=== PATIENT | male | born 1950 | race Caucasian/White ===

== ENCOUNTER 2016-05-23 11:30 | Day surgery (SDC) | payer MEDICARE, MEDICAID, OTHER ==
[~2016-05-23 11:30] MED LIST: Lactated Ringers 1,000 ML IV SCH; Lidocaine 1%/Sod Bicarbonate in NS 8.4% 1 ML Syringe IV PRN; Sodium Chloride 0.9% 10 ML Syringe FLUSH PRN
--- NOTE | 2016-05-23 12:09 | PCM.PREANE ---
Preanesthetic Assessment - Anesthesia/Transfusion/Family Hx Anesthesia History: Prior Anesthesia Without Reaction Family History of Anesthesia Reaction: No Transfusion History: No Prior Transfusion(s) - Review of Systems General: No Symptoms Pulmonary: No Symptoms Cardiovascular: No Symptoms Gastrointestinal: No symptoms Neurological: Numbness (minor in left hand) Other: Reports: None - Physical Assessment NPO Status Date: 05/22/16 NPO Status Time: 00:00 Pulse: 81 O2 Sat by Pulse Oximetry: 94 Respiratory Rate: 16 Blood Pressure: 109/71 Temperature: 36.4 C Height: 1.68 m Weight: 78.018 kg ASA Class: 3 Mental Status: Alert & Oriented x3 Dentition: Reports: Normal Dentition, Fyffe(s) Thyro-Mental Finger Breadths: 3 Mouth Opening Finger Breadths: 3 ROM/Head Extension: Limited/Partial (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 "not sure which level") Lungs: Clear to auscultation, Normal respiratory effort Cardiovascular: Regular Rate, Regular Rhythm, No Murmurs - Allergies Allergies/Adverse Reactions: Allergies Allergy/AdvReac Type Severity Reaction Status Date / Time No Known Allergies Allergy Verified 05/22/16 14:06 - Blood Blood Available: No Product(s) Available: None - Anesthesia Plan Pre-Op Medication Ordered: None - Acknowledgements Anesthesia Type Planned: MAC Pt an Appropriate Candidate for the Planned Anesthesia: Yes Alternatives and Risks of Anesthesia Discussed w Pt/Guardian: Yes Pt/Guardian Understands and Agrees with Anesthesia Plan: Yes PreAnesthesia Questionnaire HEENT History: Reports: Impaired vision, Other (see below) Other HEENT History: wears eyeglasses, tinnitis Cardiovascular History: Reports: Afib, Arrhythmia, High cholesterol, Other (see below) 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 Respiratory History: Reports: None Gastrointestinal History: Reports: Hemorrhoids Genitourinary History: Reports: None 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 Neurological History: Reports: None Psychiatric History: Reports: PTSD Endocrine/Metabolic History: Reports: None Hematologic History: Reports: Other (see below) Other Hematologic History: chronic anticoagulation Immunologic History: Reports: None Oncologic (Cancer) History: Reports: None Dermatologic History: Reports: None - Infectious Disease History Infectious Disease History: Reports: Chicken pox, Measles, Mumps, Shingles - Past Surgical History Head Surgeries/Procedures: Reports: None Cardiovascular Surgical History: Reports: Cardiac Ablation GI Surgical History: Reports: Colonoscopy Musculoskeletal Surgical History: Reports: Other (see below) Other Musculoskeletal Surgeries/Procedures:: back surgery--3 vertebrae fused C4- C6, great toe joint replacement - SUBSTANCE USE Smoking Status *Q: Never Smoker Tobacco Use Within Last Twelve Months: Snuff/Dip Second Hand Smoke Exposure: No Days Per Week of Alcohol Use: 0 Number of Drinks Per Day: 1 Total Drinks Per Week: 0 Recreational Drug Use History: No - HOME MEDS Home Medications: Home Meds Multivitamin with Minerals [Multivitamins with Minerals] 1 tab PO DAILY [History] Simvastatin [Zocor] 20 mg PO DAILY 01/12/15 [History] Diltiazem HCl [Cardizem LA] 120 mg PO DAILY #30 tab.sr.24h 05/03/15 [Rx] Apixaban [Eliquis] 5 mg PO BID 10/09/15 [History] Cholecalciferol (Vitamin D3) [Vitamin D3] 2,000 unit PO DAILY 05/22/16 [History] Melatonin 3 mg PO DAILY 05/22/16 [History] Multivitamin [Multivitamins] 1 tab PO DAILY 05/22/16 [History] Psyllium Husk [Metamucil] 1 cap PO DAILY 05/22/16 [History] - CURRENT (IN HOUSE) MEDS Current Meds: Current Medications Lactated Ringer's (Ringers, Lactated) 1,000 mls @ 125 mls/hr IV ASDIRECTED BRENDA Stop: 05/23/16 23:00 Lidocaine/Sodium Bicarbonate (Buffered Lidocaine 1% In Ns 8.4%) 0.25 ml IV ONETIME PRN PRN Reason: Prior to IV Start Stop: 05/23/16 18:00 Sodium Chloride (Saline Flush) 10 ml FLUSH ASDIRECTED PRN PRN Reason: Keep Vein Open Stop: 05/23/16 18:00 Discontinued Medications Lactated Ringer's (Ringers, Lactated) 1,000 mls @ 125 mls/hr IV ASDIRECTED [facility] Lidocaine/Sodium Bicarbonate (Buffered Lidocaine 1% In Ns 8.4%) 0.25 ml IV ONETIME PRN PRN Reason: Prior to IV Start Sodium Chloride (Saline Flush) 10 ml FLUSH ASDIRECTED PRN PRN Reason: Keep Vein Open
--- NOTE | 2016-05-23 13:03 | PCM.HP ---
H&P History of Present Illness - General Date of Service: 05/23/16 Admit Problem/Dx: Screening colonoscopy Source of Information: Patient - History of Present Illness Initial Comments - Free Text/Narative: The patient is a 65-year-old male self referred. PCP is Dr. Connor, also follows with providers at [facility]. The patient was last evaluated in the clinic on 04/20/16. He denies any medical changes since his last visit. He has been holding his Eliquis for the recommended two days prior to procedure. He does also report that he had an anal fissure after his last endoscopy. The patient denies any constipation/ diarrhea/ hematochezia/ melena/blood on tissue paper. Hx of external hemorrhoids, under control last a few years ago. Has 1-2 soft, brown, formed, BMs daily. Bowel movements are described as regular and easy to pass. Takes metamucil controls bowels. . No unintentional weight loss. No change in stool caliber. Denies history of ulcerative colitis or Crohn's disease. Denies any family history of inflammatory bowel disease or GI cancers. Last colonoscopy was 10-12 years ago at [facility], uncertain who did this for him. Was told it was normal. [facility] that indicated las colonoscopy was 11/2005, and "negative." No history of reflux, heartburn, nausea, vomiting, or dysphagia. - Related Data Allergies/Adverse Reactions: Allergies Allergy/AdvReac Type Severity Reaction Status Date / Time No Known Allergies Allergy Verified 05/22/16 14:06 Home Medications: Home Meds Multivitamin with Minerals [Multivitamins with Minerals] 1 tab PO DAILY [History] Simvastatin [Zocor] 20 mg PO DAILY 01/12/15 [History] Diltiazem HCl [Cardizem LA] 120 mg PO DAILY #30 tab.sr.24h 05/03/15 [Rx] Apixaban [Eliquis] 5 mg PO BID 10/09/15 [History] Cholecalciferol (Vitamin D3) [Vitamin D3] 2,000 unit PO DAILY 05/22/16 [History] Melatonin 3 mg PO DAILY 05/22/16 [History] Psyllium Husk [Metamucil] 1 cap PO DAILY 05/22/16 [History] Past Medical History HEENT History: Reports: Impaired vision, Other (see below) Other HEENT History: wears eyeglasses, tinnitis Cardiovascular History: Reports: Afib, Arrhythmia, High cholesterol, Other (see below) 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 Respiratory History: Reports: None Gastrointestinal History: Reports: Hemorrhoids Genitourinary History: Reports: None 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 Neurological History: Reports: None Psychiatric History: Reports: PTSD Endocrine/Metabolic History: Reports: None Hematologic History: Reports: Other (see below) Other Hematologic History: chronic anticoagulation Immunologic History: Reports: None Oncologic (Cancer) History: Reports: None Dermatologic History: Reports: None - Infectious Disease History Infectious Disease History: Reports: Chicken pox, Measles, Mumps, Shingles - Past Surgical History Head Surgeries/Procedures: Reports: None Cardiovascular Surgical History: Reports: Cardiac Ablation GI Surgical History: Reports: Colonoscopy Musculoskeletal Surgical History: Reports: Other (see below) Other Musculoskeletal Surgeries/Procedures:: back surgery--3 vertebrae fused C4- C6, great toe joint replacement Social & Family History - Tobacco Use Smoking Status *Q: Never Smoker Second Hand Smoke Exposure: No - Alcohol Use Days Per Week of Alcohol Use: 0 Number of Drinks Per Day: 1 Total Drinks Per Week: 0 - Recreational Drug Use Recreational Drug Use: No H&P Review of Systems - Review of Systems: Review Of Systems: See Below Free Text/Narrative: Denies any exertional chest pain or shortness of breath. Does walk on the treadmill twice weekly without symptoms. No history of any easy bleeding or bruising. No personal or familial history of clotting or bleeding disorders. No history of anesthetic complications. No history of familial anesthetic complications. Denies presence/history of chest pain. NO longer has palpitations, resolved with last ablation. Dr. Carbajal at [facility] did recently discontinue his Flecanide after ablation. NO: lower extremity edema, dyspnea at rest, orthopnea , claudication, wheezing, obstructive sleep apnea, chronic cough, upper respiratory symptoms in the last two weeks. History of blood thinner use, for history of atrial fibrillation. Is on Eliquis, previously was on Coumadin. NO hx stoke, stents in heart or heart valves. No history of anemia. No history of seizure or stroke. No history of fever, chills, or nightsweats. Has prior cardiology evaluation for atrial fibrillation. Hx of AVRT, PAF, hypertension, hyperlipidemia. Last cardiology visit was with Teresa Burden NP on 04/10. Eliquis was continued. EKG in clinic at that vist was normal, in SR. Per Ms. Burden's note patient did have a negative stress test at [facility] prior to ablation in 2015. Sleep study was recommended by Dr. Kothari in December, patient declined. Dr. Carbajal, [facility] and [facility], is his or director. Patient has had ablations x 2. He has had no recurrence of atrial fibrillation since his pulmonary vein isolation on 01/09/16.Patient saw Dr. Carbajal last on . Eliquis was continued due to risk factors ([id number] score 2). Diltiazem was continued for HTN. Flecanide was discontinued. Echo 2015: Conclusion: 1. Left ventricular ejection fraction is 65 to 70%. 2. Impaired left ventricular relaxation with indeterminate LV filling pressures. (Grade I Diastolic Dysfunction). 3. Mildly dilated left atrium. NO: pulmonology evaluation. All other systems reviewed and were negative except as per history of present illness. General: Reports: no symptoms HEENT: Reports: no symptoms Pulmonary: Reports: No Symptoms Cardiovascular: Reports: no symptoms Gastrointestinal: Reports: No symptoms Genitourinary: Reports: no symptoms Musculoskeletal: Reports: no symptoms Skin: Reports: no symptoms Psychiatric: Reports: no symptoms Neurological: Reports: No Symptoms Hematologic/Lymphatic: Reports: no symptoms Immunologic: Reports: no symptoms Exam - Exam Exam: See Below - Vital Signs Vital Signs: Last Vital Signs Temp 97.6 F 05/23/16 12:17 Pulse 81 05/23/16 12:17 Resp 16 05/23/16 12:17 BP 109/71 05/23/16 12:17 Pulse Ox 94 L 05/23/16 12:17 Weight: 78.018 kg - Exam General: alert, oriented HEENT: Conjunctiva clear. No: Scleral icterus Lungs: Clear to auscultation, Normal respiratory effort Cardiovascular: regular rate, regular rhythm, normal S1, normal S2 Abdomen: soft Back Exam: normal inspection Extremities: normal inspection. No: edema Skin: warm, dry, intact Neuro Extensive - Mental Status: alert, oriented x3, normal mood/affect, normal cognition, memory intact Psychiatric: alert, normal affect, normal mood *Q Meaningful Use (ADM) - VTE *Q VTE Criteria *Q: - Stroke *Q Stroke Criteria *Q: - AMI *Q AMI Criteria *Q: Problem List Initiated/Reviewed/Updated: Yes Orders Last 24hrs: Active Orders 24 hr Category Date Time Status Peripheral IV Care [RC] . DIRECTED Care 05/23/16 00:01 Active Verify Patient Consent Obtain [RC] ASDIRECTED Care 05/23/16 00:01 Active Lactated Ringers [Ringers, Lactated] 1,000 ml Med 05/23/16 00:01 Active IV ASDIRECTED Lidocaine 1%/Sod Bicarbonate [Buffered Lidocaine 1% in Med 05/23/16 00:01 Active NS 8.4%] 0.25 ml IV ONETIME PRN Sodium Chloride 0.9% [Saline Flush] Med 05/23/16 00:01 Active 10 ml FLUSH ASDIRECTED PRN Medication Administration Instruction [OM.PC] Routine Oth 05/23/16 00:01 Ordered Peripheral IV Insertion Adult [OM.PC] Routine Oth 05/23/16 00:01 Ordered Medication Orders Lactated Ringer's (Ringers, Lactated) 1,000 mls @ 125 mls/hr IV ASDIRECTED BRENDA Stop: 05/23/16 23:00 Last Admin: 05/23/16 12:05 Dose: 125 mls/hr Lidocaine/Sodium Bicarbonate (Buffered Lidocaine 1% In Ns 8.4%) 0.25 ml IV ONETIME PRN PRN Reason: Prior to IV Start Stop: 05/23/16 18:00 Last Admin: 05/23/16 12:04 Dose: 0.25 ml Sodium Chloride (Saline Flush) 10 ml FLUSH ASDIRECTED PRN PRN Reason: Keep Vein Open Stop: 05/23/16 18:00 Assessment/Plan Comment:: 65yr male due for colonoscopy, need for screening colonoscopy. Patient can perform 4 METS of physical activity without chest pain or shortness of breath. Hx of AVRT, PAF, hypertension, hyperlipidemia. PLAN: We discussed performing a screening colonoscopy. We discussed the risks and benefits of the colonoscopy including, pain, bleeding, damage to surrounding structures, need for additional procedures and bowel perforation. This procedure will be done today at [facility] due to cardiac hx and use of Eliquis, orders were placed and sent. I personally reviewed the patient's previous medical records and laboratory studies. Patient verbalized understanding and agreed with care plan. This patient was evaluated with Dr. Candy Fontanez, plan formulated by JENNY Tavarez-Beth scribing for Dr. Candy Fontanez General Surgery Department [facility]
[2016-05-23] MEDS ORDERED: Propofol 200 MG/20 ML SDV ONE ×3 (13:59→15:10)
--- NOTE | 2016-05-23 15:12 | PCM48HPAN ---
Post Anesthesia Note - EVALUATION WITHIN 48HRS OF ANESTHETIC Vital Signs in Normal Range: Yes Patient Participated in Evaluation: Yes Respiratory Function Stable: Yes Airway Patent: Yes Cardiovascular Function Stable: Yes Hydration Status Stable: Yes Pain Control Satisfactory: Yes Nausea and Vomiting Control Satisfactory: Yes Mental Status Recovered: Yes
[2016-05-23 15:43] VITALS: BP 128/83
--- NOTE | 2016-05-23 15:52 | PCM.OPNOTE ---
- General Post-Op/Procedure Note Date of Surgery/Procedure: 05/23/16 Operative Procedure(s): Colonoscopy with hot snare polypectomy Pre Op Diagnosis: Average risk screening colonoscopy Post-Op Diagnosis: Colon polyps, diverticulosis Anesthesia Technique: MAC Primary Surgeon: Candy oFntanez Anesthesia Provider: Shraddha Bernardo Pathology: 1. Hepatic flexure polyps (2) 2. Descending colon polyp 3. Sigmoid colon polyp 4. Rectal polyps (2) Fluid Replacement, Intraop: 800 (mL crystalloid ) EBL in mLs: 0 Complications: None Condition: Good Free Text/Narrative:: INDICATION FOR PROCEDURE: The patient is a 65-year-old man who was referred to me by Dr. Jhon Connor, and [facility] for evaluation for average risk screening colonoscopy. Last colonoscopy 11/2005. Performing a screening colonoscopy and the associated risks of the procedure had been discussed with the patient. The patient found these risks acceptable and agreed to proceed. DESCRIPTION OF PROCEDURE: A digital rectal exam was performed which was unremarkable. The prostate was of normal size and non-nodular. An Olympus colonoscope was inserted into the rectum and guided under direct visualization to the appendiceal orifice and ileocecal valve. Counter pressure was utilized to reach the cecum. The scope was then slowly withdrawn through the colon. The quality of the prep was good. Two small polyps were noted at the hepatic flexure , they were removed with hot snare and retrieved. One small polyp was noted in the descending colon, removed with hot snare and retrieved. One small polyp was noted in the sigmoid colon, removed with hot snare and retrieved. Finally, two small rectal polyps were noted, removed with hot snare and retrieved. Scant diverticulosis was noted throughout the colon. There was no evidence of angiodysplasias. The scope was withdrawn into the rectum and retroflexed. There was no significant prominence of the patient's internal hemorrhoids. The scope was straightened, the colon was desufflated, and the scope was withdrawn. The patient was awakened from sedation and transferred to the recovery room in stable condition having tolerated the procedure well. POSTOPERATIVE PLAN: I discussed with the patient's my intraoperative findings and recommendations. He will be sent a letter with further recommendations and his pathology findings as well as when his next colonoscopy should be performed. He is to restart his Eliquis tomorrow night. I counseled the patient's on normal and abnormal post polypectomy bleeding. He is to come to the emergency department immediately for any significant bleeding.
== END 2016-05-23 15:55 | disposition home or self-care (01) ==
LOC: JD.SDS 11:30
PROVIDERS: ATTEND Surgery
DX: Z12.11 Encounter for screening for malignant neoplasm of colon (principal); D12.4 Benign neoplasm of descending colon; D12.3 Benign neoplasm of transverse colon; D12.8 Benign neoplasm of rectum; K63.5 Polyp of colon; K57.30 Diverticulosis of large intestine without perforation or abscess without bleeding; Z79.899 Other long term (current) drug therapy; E78.00 Pure hypercholesterolemia, unspecified; Z98.890 Other specified postprocedural states
CPT/HCPCS: 45385; 88305; J7120; 00810; J2704

== ENCOUNTER 2019-04-13 10:39 | Emergency (ER) | payer MEDICARE, OTHER ==
[2019-04-13 10:53] VITALS: BP 111/75; PULSE 88
--- NOTE | 2019-04-13 12:23 | EDM.PDOC ---
ED HPI GENERAL MEDICAL PROBLEM - General Chief Complaint: Gastrointestinal Problem Stated Complaint: BLACK STOOL Time Seen by Provider: 04/13/19 10:59 Source of Information: Reports: Patient, Family History Limitations: Reports: No Limitations - History of Present Illness INITIAL COMMENTS - FREE TEXT/NARRATIVE: The patient presents with dark stools for 6 days. He says he has no pain except when he coughs. He is not lightheaded. He has no headache, neck pain, chest pain, shortness of breath, nausea or vomiting. He has no diarrhea. He is on eliquis. He stopped that 2 days ago. He had a colonoscopy 2 years ago that was good. Onset: Gradual Duration: Day(s): (6) Improves with: Reports: None Worsens with: Reports: None Associated Symptoms: Reports: No Other Symptoms Lower Abdominal Pain Score (Numeric/FACES): 3 - Related Data Allergies Allergy/AdvReac Type Severity Reaction Status Date / Time No Known Allergies Allergy Verified 04/13/19 10:53 Home Meds: Home Meds Multivitamin with Minerals [Multivitamins with Minerals] 1 tab PO DAILY [History] Diltiazem HCl [Cardizem LA] 120 mg PO DAILY #30 tab.sr.24h 05/03/15 [Rx] Apixaban [Eliquis] 5 mg PO BID 10/09/15 [History] Cholecalciferol (Vitamin D3) [Vitamin D3] 2,000 unit PO DAILY 05/22/16 [History] Psyllium Husk [Metamucil] 1 cap PO DAILY 05/22/16 [History] Fexofenadine [Susan] 60 mg PO DAILY 04/13/19 [History] Lutein/Minerals/Vit A,C & E [Ocuvite] 1 tab PO DAILY 04/13/19 [History] Evans-3/DHA/Epa/Fish Oil [Evans 3 500 Softgel] 1 each PO DAILY 04/13/19 [History ] atorvaSTATin [Lipitor] 10 mg PO BEDTIME 04/13/19 [History] Past Medical History HEENT History: Reports: Impaired Vision, Other (See Below) Other HEENT History: wears eyeglasses, tinnitis Cardiovascular History: Reports: Afib, Arrhythmia, High Cholesterol, Other (See Below) 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 Respiratory History: Reports: None Gastrointestinal History: Reports: Hemorrhoids Genitourinary History: Reports: None 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 Neurological History: Reports: None Psychiatric History: Reports: PTSD Endocrine/Metabolic History: Reports: None Hematologic History: Reports: Other (See Below) Other Hematologic History: chronic anticoagulation Immunologic History: Reports: None Oncologic (Cancer) History: Reports: None Dermatologic History: Reports: None - Infectious Disease History Infectious Disease History: Reports: Chicken Pox, Measles, Mumps, Shingles - Past Surgical History Head Surgeries/Procedures: Reports: None GI Surgical History: Reports: Colonoscopy Musculoskeletal Surgical History: Reports: Other (See Below) Social & Family History - Tobacco Use Smoking Status *Q: Never Smoker - Recreational Drug Use Recreational Drug Use: No ED ROS GENERAL - Review of Systems Review Of Systems: See Below Constitutional: Reports: No Symptoms HEENT: Reports: No Symptoms Respiratory: Reports: No Symptoms Cardiovascular: Reports: No Symptoms Endocrine: Reports: No Symptoms GI/Abdominal: Reports: Abdominal Pain, Black Stool. Denies: Nausea, Vomiting : Reports: No Symptoms Musculoskeletal: Reports: No Symptoms Skin: Reports: No Symptoms ED EXAM, GI/ABD - Physical Exam Exam: See Below Exam Limited By: No Limitations General Appearance: Alert, No Apparent Distress Ears: Normal External Exam Nose: Normal Inspection Head: Atraumatic, Normocephalic Neck: Normal Inspection Respiratory/Chest: No Respiratory Distress, Lungs Clear, Normal Breath Sounds Cardiovascular: Regular Rate, Rhythm, No Edema, No Murmur GI/Abdominal Exam: Soft, Non-Tender, No Organomegaly, No Mass Back Exam: Normal Inspection Extremities: Normal Inspection Course - Vital Signs Last Recorded V/S: Last Vital Signs Temp 98.4 F 04/13/19 10:50 Pulse 88 04/13/19 10:50 Resp 16 04/13/19 10:50 BP 111/75 04/13/19 10:50 Pulse Ox 95 04/13/19 10:50 - Orders/Labs/Meds Labs: Laboratory Tests 04/13/19 04/13/19 04/13/19 Range/Units 11:12 11:12 11:12 WBC 6.22 (4.23-9.07) K/mm3 RBC 3.35 L (4.63-6.08) M/mm3 Hgb 10.5 L D (13.7-17.5) gm/dl Hct 31.9 L (40.1-51.0) % MCV 95.2 H D (79.0-92.2) fl MCH 31.3 (25.7-32.2) pg MCHC 32.9 (32.2-35.5) g/dl RDW Std Deviation 47.1 H (35.1-43.9) fL Plt Count 282 (163-337) K/mm3 MPV 8.0 L (9.4-12.3) fl Neut % (Auto) 68.5 H (34.0-67.9) % Lymph % (Auto) 23.5 (21.8-53.1) % Grainger % (Auto) 7.7 (5.3-12.2) % Eos % (Auto) 0 L (0.8-7.0) Baso % (Auto) 0.0 L (0.1-1.2) % Neut # (Auto) 4.26 (1.78-5.38) K/mm3 Lymph # (Auto) 1.46 (1.32-3.57) K/mm3 Grainger # (Auto) 0.48 (0.30-0.82) K/mm3 Eos # (Auto) 0.00 L (0.04-0.54) K/mm3 Baso # (Auto) 0.00 L (0.01-0.08) K/mm3 PT 11.4 (9.7-12.0) SECONDS INR 1.05 APTT 25 (22-31) SECONDS Sodium 141 (136-145) mEq/L Potassium 3.9 (3.5-5.1) mEq/L Chloride 105 (98-107) mEq/L Carbon Dioxide 27 (21-32) mEq/L Anion Gap 12.9 (5-15) BUN 14 (7-18) mg/dL Creatinine 0.9 (0.7-1.3) mg/dL Est Cr Clr Drug Dosing 67.38 mL/min Estimated GFR (MDRD) > 60 (>60) mL/min BUN/Creatinine Ratio 15.6 (14-18) Glucose 106 (80-115) mg/dL Calcium 8.9 (8.5-10.1) mg/dL Total Bilirubin 0.3 (0.2-1.0) mg/dL AST 28 (15-37) U/L ALT 32 (16-63) U/L Alkaline Phosphatase 54 (46-116) U/L Total Protein 6.4 (6.4-8.2) g/dl Albumin 3.8 (3.4-5.0) g/dl Globulin 2.6 gm/dL Albumin/Globulin Ratio 1.5 (1-2) - Re-Assessments/Exams Free Text/Narrative Re-Assessment/Exam: 04/13/19 12:21 I ordered labs. His Hgb was low at 10.5. He was normal years ago when he was here. His CMP looks good. His PT/INR/PTT all look good. I will have him hole his eliquis and take pepcid and follow up with his doctor this week. Departure - Departure Time of Disposition: 12:30 Disposition: Home, Self-Care 01 Condition: Good Clinical Impression: GI bleed Qualifiers: GI bleed type/associated pathology: melena Qualified Code(s): K92.1 - Melena - Discharge Information *PRESCRIPTION DRUG MONITORING PROGRAM REVIEWED*: Not Applicable *COPY OF PRESCRIPTION DRUG MONITORING REPORT IN PATIENT REENA: Not Applicable Referrals: Patience Guardado MD [Primary Care Provider] - 1 Week Additional Instructions: Hold your eliquis for at least a week. Take pepcid daily for [address] Guardado this week. Please return if you are worse such as more bleeding, lightheadedness, chest pain or shortness of breath. Sepsis Event Note - Evaluation Sepsis Screening Result: No Definite Risk - Focused Exam Vital Signs: Vital Signs Temp Pulse Resp BP Pulse Ox 04/13/19 10:50 98.4 F 88 16 111/75 95 Date Exam was Performed: 04/13/19 Time Exam was Performed: 12:17
== END 2019-04-13 12:50 | disposition home or self-care (01) ==
LOC: JD.ED 10:39
DX: K92.1 Melena (principal); I48.91 Unspecified atrial fibrillation; E78.00 Pure hypercholesterolemia, unspecified; Z79.899 Other long term (current) drug therapy; Z79.01 Long term (current) use of anticoagulants
CPT/HCPCS: 36415; 80053; 85025; 85610; 85730; 99282; 99284

== ENCOUNTER 2019-04-18 19:09 | Emergency (ER) | payer MEDICARE, OTHER ==
[2019-04-18 19:31] VITALS: BP 122/71; PULSE 90
[2019-04-18] MEDS ORDERED: Sodium Chloride 0.9% 10 ML Syringe FLUSH PRN (19:49)
[2019-04-18] MEDS ORDERED: Sodium Chloride 0.9% 1,000 ML IV SCH (20:00)
--- NOTE | 2019-04-18 20:19 | EDM.PDOC ---
ED HPI GENERAL MEDICAL PROBLEM - General Chief Complaint: Gastrointestinal Problem Stated Complaint: BLACK STOOL AND BP DROPPING LOW HEMO Time Seen by Provider: 04/18/19 19:28 Source of Information: Reports: Patient History Limitations: Reports: No Limitations - History of Present Illness INITIAL COMMENTS - FREE TEXT/NARRATIVE: Patient is a 68-year-old male who presents with complaints of dark stools and an episode of lightheadedness upon standing today. Patient states his dark stools began initially on April 04. Patient had been on Eliquis, however he did stop this this last Saturday. He has had no abdominal pain, nausea, vomiting , or diarrhea. He states that his stools have been formed. Patient was seen in this emergency department on Saturday for the symptoms. At that time his hemoglobin was found to be 10.5. He was also started on Pepcid. He followed up with Dr. [facility] on . Blood work was rechecked at that time and his hemoglobin was found to be 9.8. He states that the [facility] is in the process of setting up an EGD to be completed to try to determine the source of the bleeding. This evenin he had an episode where he became mildly lightheaded upon standing. He drank a Gatorade and the have not recurred. - Related Data Allergies Allergy/AdvReac Type Severity Reaction Status Date / Time No Known Allergies Allergy Verified 04/18/19 19:28 Home Meds: Home Meds Diltiazem HCl [Cardizem LA] 120 mg PO DAILY #30 tab.sr.24h 05/03/15 [Rx] Apixaban [Eliquis] 5 mg PO BID 10/09/15 [History] Cholecalciferol (Vitamin D3) [Vitamin D3] 2,000 unit PO DAILY 05/22/16 [History] Psyllium Husk [Metamucil] 1 cap PO DAILY 05/22/16 [History] Fexofenadine [Susan] 60 mg PO DAILY 04/13/19 [History] Lutein/Minerals/Vit A,C & E [Ocuvite] 1 tab PO DAILY 04/13/19 [History] Fulton-3/DHA/Epa/Fish Oil [Fulton 3 500 Softgel] 1 each PO DAILY 04/13/19 [History ] atorvaSTATin [Lipitor] 10 mg PO BEDTIME 04/13/19 [History] Past Medical History HEENT History: Reports: Impaired Vision, Other (See Below) Other HEENT History: wears eyeglasses, tinnitis Cardiovascular History: Reports: Afib, Arrhythmia, High Cholesterol, Other (See Below) 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 Respiratory History: Reports: None Gastrointestinal History: Reports: Hemorrhoids Genitourinary History: Reports: None 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 Neurological History: Reports: None Psychiatric History: Reports: PTSD Endocrine/Metabolic History: Reports: None Hematologic History: Reports: Other (See Below) Other Hematologic History: chronic anticoagulation Immunologic History: Reports: None Oncologic (Cancer) History: Reports: None Dermatologic History: Reports: None - Infectious Disease History Infectious Disease History: Reports: Chicken Pox, Measles, Mumps, Shingles - Past Surgical History Head Surgeries/Procedures: Reports: None GI Surgical History: Reports: Colonoscopy Musculoskeletal Surgical History: Reports: Other (See Below) Social & Family History - Tobacco Use Smoking Status *Q: Never Smoker - Recreational Drug Use Recreational Drug Use: No ED ROS GENERAL - Review of Systems Review Of Systems: Comprehensive ROS is negative, except as noted in HPI. ED EXAM, GI/ABD - Physical Exam Exam: See Below Exam Limited By: No Limitations General Appearance: Alert, WD/WN, No Apparent Distress Respiratory/Chest: No Respiratory Distress, Lungs Clear, Normal Breath Sounds, No Accessory Muscle Use, Chest Non-Tender Cardiovascular: Normal Peripheral Pulses, Regular Rate, Rhythm, No Edema, No Gallop, No JVD, No Murmur, No Rub Extremities: Normal Inspection, Normal Range of Motion, Non-Tender, Normal Capillary Refill, No Pedal Edema Neurological: Alert, Oriented, CN II-XII Intact, Normal Cognition, Normal Gait, Normal Reflexes, No Motor/Sensory Deficits Psychiatric: Normal Affect, Normal Mood Skin Exam: Warm, Dry, Intact, Normal Color, No Rash Course - Vital Signs Last Recorded V/S: Last Vital Signs Temp 97.6 F 04/18/19 19:28 Pulse 90 04/18/19 19:28 Resp BP 122/71 04/18/19 19:28 Pulse Ox 97 04/18/19 19:28 Orthostatic Blood Pressure [ 111/66 Standing] Orthostatic Blood Pressure [ 119/66 Sitting] Orthostatic Blood Pressure [ 123/72 Supine] - Orders/Labs/Meds Orders: Active Orders 24 hr Category Date Time Status Orthostatic Vital Signs [RC] ASDIRECTED Care 04/18/19 19:34 Active Peripheral IV Care [RC] . DIRECTED Care 04/18/19 19:49 Active Sodium Chloride 0.9% [Normal Saline] 1,000 ml Med 04/18/19 20:00 Active IV ASDIRECTED Sodium Chloride 0.9% [Saline Flush] Med 04/18/19 19:49 Active 10 ml FLUSH ASDIRECTED PRN Peripheral IV Insertion Adult [OM.PC] Stat Oth 04/18/19 19:49 Ordered Medication Orders Sodium Chloride (Normal Saline) 1,000 mls @ 150 mls/hr IV ASDIRECTED BRENDA Last Admin: 04/18/19 20:21 Dose: 150 mls/hr Sodium Chloride (Saline Flush) 10 ml FLUSH ASDIRECTED PRN PRN Reason: Keep Vein Open Last Admin: 04/18/19 20:01 Dose: 10 ml Labs: Laboratory Tests 04/18/19 04/18/19 Range/Units 19:57 19:57 WBC 5.38 (4.23-9.07) K/mm3 RBC 3.09 L (4.63-6.08) M/mm3 Hgb 9.7 L (13.7-17.5) gm/dl Hct 30.1 L (40.1-51.0) % MCV 97.4 H (79.0-92.2) fl MCH 31.4 (25.7-32.2) pg MCHC 32.2 (32.2-35.5) g/dl RDW Std Deviation 51.7 H (35.1-43.9) fL Plt Count 322 (163-337) K/mm3 MPV 8.0 L (9.4-12.3) fl Neut % (Auto) 55.6 (34.0-67.9) % Lymph % (Auto) 32.7 (21.8-53.1) % Irwin % (Auto) 11.5 (5.3-12.2) % Eos % (Auto) 0 L (0.8-7.0) Baso % (Auto) 0.0 L (0.1-1.2) % Neut # (Auto) 2.99 (1.78-5.38) K/mm3 Lymph # (Auto) 1.76 (1.32-3.57) K/mm3 Irwin # (Auto) 0.62 (0.30-0.82) K/mm3 Eos # (Auto) 0.00 L (0.04-0.54) K/mm3 Baso # (Auto) 0.00 L (0.01-0.08) K/mm3 Sodium 141 (136-145) mEq/L Potassium 3.4 L (3.5-5.1) mEq/L Chloride 107 (98-107) mEq/L Carbon Dioxide 28 (21-32) mEq/L Anion Gap 9.4 (5-15) BUN 9 (7-18) mg/dL Creatinine 0.9 (0.7-1.3) mg/dL Est Cr Clr Drug Dosing 67.38 mL/min Estimated GFR (MDRD) > 60 (>60) mL/min BUN/Creatinine Ratio 10.0 L (14-18) Glucose 141 H (80-115) mg/dL Calcium 8.2 L (8.5-10.1) mg/dL Total Bilirubin 0.3 (0.2-1.0) mg/dL AST 26 (15-37) U/L ALT 38 (16-63) U/L Alkaline Phosphatase 52 (46-116) U/L Total Protein 6.1 L (6.4-8.2) g/dl Albumin 3.6 (3.4-5.0) g/dl Globulin 2.5 gm/dL Albumin/Globulin Ratio 1.4 (1-2) Meds: Medications Generic Name Dose Route Start Last Admin Trade Name Freq PRN Reason Stop Dose Admin Sodium Chloride 1,000 mls @ 150 mls/hr 04/18/19 20:00 04/18/19 20:21 Normal Saline IV 150 mls/hr ASDIRECTED BRENDA Administration Sodium Chloride 10 ml 04/18/19 19:49 04/18/19 20:01 Saline Flush FLUSH 10 ml ASDIRECTED PRN Administration Keep Vein Open - Re-Assessments/Exams Free Text/Narrative Re-Assessment/Exam: 04/18/19 21:03 Hemoglobin today returned at 9.7 which is only slightly down from 9.8 last . Potassium was mildly low at 3.4. Hematology was otherwise unremarkable. Patient was not orthostatic. Discussed these findings with the patient and his . We will discharge him home with instructions to follow- up in the [facility]. He says he does have an appointment on with Dr. Guardado. Discharge instructions as documented. Departure - Departure Time of Disposition: 21:03 Disposition: Home, Self-Care 01 Condition: Fair Clinical Impression: GI bleed Qualifiers: GI bleed type/associated pathology: melena Qualified Code(s): K92.1 - Melena - Discharge Information *PRESCRIPTION DRUG MONITORING PROGRAM REVIEWED*: No *COPY OF PRESCRIPTION DRUG MONITORING REPORT IN PATIENT REENA: No Instructions: Gastrointestinal Bleeding, [id number] Referrals: Patience Guardado MD [Primary Care Provider] - Forms: ED Department Discharge Additional Instructions: You were seen in the emergency department today for black stools and an episode of lightheadedness. Blood work was completed and your hemoglobin was found to be 9.7 this evening. This is only slightly down from 9.8 that it was in the clinic on . Orthostatic vital signs were checked and these were found to be normal. There was no signs of dehydration in your blood work either. At this time I would recommend that you ensure that you are adequately hydrated. Follow-up in the [facility] as currently scheduled on . If you should experience any new or worsening symptoms of concern prior to then, please do not hesitate to return to the emergency department. Sepsis Event Note - Evaluation Sepsis Screening Result: No Definite Risk - Focused Exam Vital Signs: Vital Signs Temp Pulse BP Pulse Ox 04/18/19 19:28 97.6 F 90 122/71 97 Date Exam was Performed: 04/18/19 Time Exam was Performed: 21:02 - My Orders Last 24 Hours: My Active Orders 04/18/19 19:34 Orthostatic Vital Signs [RC] ASDIRECTED 04/18/19 19:49 Peripheral IV Care [RC] . DIRECTED Sodium Chloride 0.9% [Saline Flush] 10 ml FLUSH ASDIRECTED PRN Peripheral IV Insertion Adult [OM.PC] Stat 04/18/19 20:00 Sodium Chloride 0.9% [Normal Saline] 1,000 ml IV ASDIRECTED - Assessment/Plan Last 24 Hours: My Active Orders 04/18/19 19:34 Orthostatic Vital Signs [RC] ASDIRECTED 04/18/19 19:49 Peripheral IV Care [RC] . DIRECTED Sodium Chloride 0.9% [Saline Flush] 10 ml FLUSH ASDIRECTED PRN Peripheral IV Insertion Adult [OM.PC] Stat 04/18/19 20:00 Sodium Chloride 0.9% [Normal Saline] 1,000 ml IV ASDIRECTED
== END 2019-04-18 21:11 | disposition home or self-care (01) ==
LOC: JD.ED 19:09
DX: K92.1 Melena (principal); I48.91 Unspecified atrial fibrillation; E78.00 Pure hypercholesterolemia, unspecified; Z79.01 Long term (current) use of anticoagulants; Z79.899 Other long term (current) drug therapy
CPT/HCPCS: 36415; 80053; 85025; 96360; 99284; J7030; 99283

== ENCOUNTER 2021-10-27 18:56 | Emergency (ER) | payer MEDICARE, OTHER | END 2021-10-27 20:23 | disposition left against medical advice (07) | LOC: JD.ED 18:56 | DX: Z53.21 Procedure and treatment not carried out due to patient leaving prior to being seen by health care provider (principal) | CPT/HCPCS: 93005 ==

== ENCOUNTER 2021-10-30 08:28 | Emergency (ER) | payer MEDICARE, OTHER ==
[2021-10-30] MEDS ORDERED: Sodium Chloride 0.9% 10 ML Syringe FLUSH PRN (08:43)
[2021-10-30] MEDS ORDERED: Sodium Chloride 0.9% 1,000 ML IV SCH (09:00)
[2021-10-30 09:28] LABS: ESTIMATED GFR 91 mL/min (>60)
[2021-10-30 10:31] VITALS: BP 105/64; PULSE 80
== END 2021-10-30 10:25 | disposition home or self-care (01) ==
LOC: JD.ED 08:28
DX: R07.89 Other chest pain (principal); I48.91 Unspecified atrial fibrillation; E78.00 Pure hypercholesterolemia, unspecified; Z79.01 Long term (current) use of anticoagulants; Z79.899 Other long term (current) drug therapy
CPT/HCPCS: 36415; 71045; 80053; 84484; 85025; 85379; 93005; 93225; 93226; 96360; 99285; J3490; J7030; 93010; 99284

== ENCOUNTER 2024-05-04 07:28 | Day surgery (SDC) | payer MEDICARE, BC ==
[~2024-05-04 07:28] MED LIST changes: -Lactated Ringers 1,000 ML IV SCH; -Lidocaine 1%/Sod Bicarbonate in NS 8.4% 1 ML Syringe IV PRN; +Sodium Chloride 0.9% 10 ML Syringe FLUSH SCH
[2024-05-04] MEDS: Lactated Ringers 1,000 ML IV SCH (08:00)
[2024-05-04] MEDS: oxyCODONE ER 10 MG TAB.ER PO ONE (08:03)
[2024-05-04] MEDS: Acetaminophen 325 MG Tab PO ONE (08:04)
[2024-05-04] MEDS: Pregabalin 25 MG Cap PO ONE (08:04)
[2024-05-04] MEDS ORDERED: propofoL 500 MG/50 ML 50 ML ONE (09:19)
[2024-05-04] MEDS ORDERED: Midazolam 1 MG/ML 2 ML SDV ONE (09:19)
[2024-05-04] MEDS ORDERED: Ondansetron 4 MG/2 ML SDV ONE (09:21)
[2024-05-04] MEDS ORDERED: ePHEDrine 50 MG/ML SDV ONE (10:25)
[2024-05-04] MEDS ORDERED: ceFAZolin 2 GM Vial ONE (10:26)
[2024-05-04] MEDS ORDERED: Lactated Ringers 1,000 ML ONE (10:52)
[2024-05-04] MEDS ORDERED: dexmedeTOMIDine HCl 200 MCG/2 ML SDV ONE (11:00)
[2024-05-04] MEDS ORDERED: Ropivacaine 0.5% 5 MG/ML 30 ML SDV ONE (11:00)
[2024-05-04] MEDS: Morphine 8 MG, EPINEPHrine 0.3 MG, Cefuroxime 750 MG, Ketorolac 30 MG, Sodium Chloride ... PRN (11:31)
[2024-05-04] MEDS: Tranexamic Acid 1,000 MG/10 ML Vial ONE (11:38)
[2024-05-04] MEDS: VANCOmycin 1 GM SDV ONE (11:38)
[2024-05-04] MEDS: Triamcinolone Acetonide 40 MG/ML 1 ML SDV ONE (11:52)
[2024-05-04] MEDS: Bupivacaine 0.25% 10 ML SDV ONE (11:52)
[2024-05-04] MEDS ORDERED: Ondansetron 4 MG/2 ML SDV IVPUSH PRN (12:09)
[2024-05-04] MEDS ORDERED: fentaNYL 100 MCG/2 ML SDV IVPUSH PRN (12:09)
[2024-05-04] MEDS ORDERED: HYDROmorphone 0.5 MG/0.5 ML Syringe IVPUSH PRN (12:09)
[2024-05-04] MEDS ORDERED: Ketorolac 30 MG/ML SDV IVPUSH PRN (12:10)
[2024-05-04] MEDS: oxyCODONE 5 MG Tab PO PRN (13:05)
[2024-05-04 13:57] VITALS: BP 128/68; PULSE 72
== END 2024-05-04 13:50 | disposition home or self-care (01) ==
LOC: JD.SDS 07:28
PROVIDERS: ATTEND Orthopaedic Surgery
DX: M17.0 Bilateral primary osteoarthritis of knee (principal); I48.0 Paroxysmal atrial fibrillation; I10 Essential (primary) hypertension; E78.2 Mixed hyperlipidemia; Z79.01 Long term (current) use of anticoagulants; Z79.899 Other long term (current) drug therapy; Z87.891 Personal history of nicotine dependence
CPT/HCPCS: 0055T; 20610; 27447; 64447; 73560; 97110; 97116; 97161; A9270; C1713; C1776; J0171; J0665; J0690; J0697; J1885; J2250; J2272; J2405; J2704; J2795; J3301; J7120; 01402; 99100; J3490

== ENCOUNTER 2025-01-04 12:19 | Emergency (ER) | payer MEDICARE, BC ==
[2025-01-04] MEDS ORDERED: Sodium Chloride 0.9% 10 ML Syringe FLUSH PRN (12:23)
[2025-01-04 12:43] VITALS: PULSE 70
[2025-01-04 13:04] LABS: A/G RATIO 1.4 (1-2); ALANINE AMINOTRANSFERASE,ALT 38.0 U/L (16-63); ASPARTATE AMNIOTRANSFERASE,AST 23.0 U/L (15-37); BILIRUBIN TOTAL 0.4 mg/dL (0.2-1.0); BLOOD UREA NITROGEN,BUN 13.0 mg/dL (7-18); CARBON DIOXIDE,CO2 28.0 mEq/L (21-32); CHLORIDE,CL 104.0 mEq/L (98-107); CREATININE 0.8 mg/dL (0.7-1.3); EST CRCL DRUG DOSING (CG) 72.0 mL/min; ESTIMATED GFR 92.0 mL/min (>60); GLUCOSE RANDOM 148.0 mg/dL (70-99); POTASSIUM,K 3.5 mEq/L (3.5-5.1); PROTEIN TOTAL,TP 6.6 g/dl (6.4-8.2); SODIUM,NA 140.0 mEq/L (136-145); TROPONIN I HIGH SENSITIVITY 5.0 pg/mL (<=76)
[2025-01-04 13:35] LABS: BASOPHILS ABSOLUTE AUTO 0.0 K/mm3 (0.0-0.2); BASOPHILS PERCENT AUTO 0.0 % (0.0-1.0); EOSINOPHILS ABSOLUTE AUTO 0.0 K/mm3 (0.0-0.4); EOSINOPHILS PERCENT AUTO 0.0 % (0.0-6.0); IMMATURE GRAN ABSOLUTE AUTO 0.03 K/mm3 (0.00-0.05); IMMATURE GRAN PERCENT AUTO 0.4 % (0.0-0.4); LYMPHOCYTES ABSOLUTE AUTO 1.9 K/mm3 (1.0-4.8); LYMPHOCYTES PERCENT AUTO 25.4 % (24.0-44.0); MEAN PLATELET VOLUME 8.3 fl (9.4-12.4); MONOCYTES ABSOLUTE AUTO 0.6 K/mm3 (0.0-0.8); MONOCYTES PERCENT AUTO 8.6 % (0.0-8.0); NEUTROPHILS ABSOLUTE AUTO 4.9 K/mm3 (1.8-7.7); NEUTROPHILS PERCENT AUTO 65.6 % (41.0-71.0); NRBC ABSOLUTE 0.00 (0.00-0.02); NRBC PERCENT 0.0 % (0.0-0.2); PLATELET COUNT,PLT 223 K/mm3 (150-400); RED BLOOD CELL COUNT 4.56 M/mm3 (4.52-5.90); WHITE BLOOD CELL COUNT,WBC 7.45 K/mm3 (3.9-11.3)
[2025-01-04 16:00] LABS: APPEARANCE,URINE CLEAR (Clear); GLUCOSE,URINE NEGATIVE (Negative); OCCULT BLOOD,URINE NEGATIVE (Negative)
[2025-01-04 16:43] VITALS: BP 122/82
== END 2025-01-04 16:36 | disposition home or self-care (01) ==
LOC: JD.ED 12:19
DX: I67.9 Cerebrovascular disease, unspecified (principal); R07.9 Chest pain, unspecified; I48.91 Unspecified atrial fibrillation; E78.00 Pure hypercholesterolemia, unspecified; K21.9 Gastro-esophageal reflux disease without esophagitis; Z86.16 Personal history of COVID-19; Z79.899 Other long term (current) drug therapy; Z79.01 Long term (current) use of anticoagulants; Z88.5 Allergy status to narcotic agent; Z91.048 Other nonmedicinal substance allergy status
CPT/HCPCS: 36415; 71045; 80053; 81003; 83690; 83735; 83880; 84484; 85025; 93005; 99285; A9270